=== PATIENT | male | born 1960 ===

== ENCOUNTER 2025-01-31 09:45 | Inpatient (IN) | payer OTHER ==
[~2025-01-31] VITALS: Ht 162.6 cm; Wt 59.0 kg
[2025-01-31] MEDS ORDERED: DILTIAZEM ER120 M2 PO (11:18)
[2025-01-31] MEDS ORDERED: ZESTRIL20 MG PO (11:18)
[2025-01-31] MEDS ORDERED: METFORMIN HCL500 M3 PO (11:18)
[2025-01-31] MEDS ORDERED: ROSUVASTATIN CAL5 MG PO (11:19)
[2025-01-31] MEDS ORDERED: HORIZANT300 MG PO (11:19)
[2025-01-31] MEDS ORDERED: PROTONIX40 MG PO (11:20)
[2025-01-31] MEDS ORDERED: B12 ACTIVE1000 MCG PO (11:20)
[2025-01-31 13:32] LABS: BASO % 0.8 % (0.1-1.2); EOS # 0.13 (0.04-0.54); EOS % 1.8 % (0.7-7.0); LYMPH # 1.71 (1.18-3.74); LYMPH % 23.8 % (19.3-53.1); MEAN PLATELET VOLUME 10.00 fl (9.4-12.4); MONO # 0.58 (0.24-0.82); MONO % 8.1 % (4.7-12.5); NEUT # 4.68 (1.56-6.13); NEUT % 65.4 % (34.0-71.1); RED CELL DISTRIBUTION WIDTH 13.6 % (11.6-14.4); URINE APPEARANCE Clear; URINE BILIRRUBIN Negative (NEGATIVE); URINE BLOOD Negative; URINE COLOR Yellow; URINE GLUCOSE Negative (NEGATIVE); URINE KETONE 15 (NEGATIVE); URINE LEUKOCYTE Negative; URINE NITRATE Negative; URINE PROTEIN Negative (NEGATIVE); URINE UROBILINOGEN 1.0 E.U./dl
[2025-01-31 13:36] LABS: URINE BACTERIA 244.7 uL (0.0-1933); URINE EPITHELIAL CELLS 12.2 uL (0.0-38.8); URINE RBC 3.3 uL (0.0-20.8); URINE WBC 8.4 uL (0.0-23.2)
[2025-01-31 13:50] LABS: URINE CAST 0.00 uL (0.0-1.40)
[2025-01-31 13:55] LABS: INR 1.04
[2025-01-31 14:23] LABS: ALT/SGPT 21.0 U/L (12-78); AST/SGOT 19.0 U/L (15-37); BILIRUBIN TOTAL 0.44 mg/dL (0.3-1.2); BUN CREA RATIO 26.0 (7.0-25.0); CREATININE SERUM 0.53 mg/dL (0.70-1.30); GFR 155.55; GLOBULINA 3.4 G/DL (2.4-3.5); GLUCOSE FASTING 79.0 mg/dL (65-100); OSMOLALITY SERUM 284.0 MOSM/KG (275-295)
[2025-03-03] MEDS ORDERED: HEMOSTATIC MATRIX 1 KIT KIT TOP ONE (09:49)
[2025-03-03] MEDS ORDERED: BUPIVACAINE HCL/MPF 0.5% 30ML VIAL ONE (09:52)
[2025-03-03] MEDS ORDERED: LIDOCAINE HCL 1%/EPINEPHRINE 20ML VIAL IJ ONE (09:52)
[2025-03-03] MEDS ORDERED: DIBUCAINE 30 GM TUBE ONE (09:52)
[2025-03-03] MEDS ORDERED: POVIDONE-IODINE 118 ML BOTT TOP ONE (09:52)
[2025-03-03] MEDS ORDERED: METRONIDAZOLE/SODIUM CHLORIDE 500 MG/100 ML PIGGYBACK IV ONE (11:00)
[2025-03-03] MEDS ORDERED: CEFTRIAXONE SODIUM 2,000 MG VIAL IV ONE (11:00)
[2025-03-03] MEDS ORDERED: ONDANSETRON HCL 2 MG/ML VIAL IV PRN (11:15)
[2025-03-03] MEDS ORDERED: OxyCODONE HCL 5 MG TABLET (ROXICODONE) PO PRN (11:15)
[2025-03-03] MEDS ORDERED: MORPHINE SULFATE 4 MG/ML VIAL IV PRN (11:15)
[2025-03-03] MEDS ORDERED: DEXTROSE 50 % IN WATER 0.5 G/ML DISP.SYRIN IV PRN ×2 (11:15→13:30)
[2025-03-03] MEDS ORDERED: 0.9 % SODIUM CHLORIDE 1,000 ML IV SCH (11:15)
[2025-03-03 12:53] LABS: BASO % 1.2 % (0.1-1.2); EOS # 0.10 (0.04-0.54); EOS % 1.9 % (0.7-7.0); LYMPH # 1.32 (1.18-3.74); LYMPH % 25.5 % (19.3-53.1); MEAN PLATELET VOLUME 10.60 fl (9.4-12.4); MONO # 0.57 (0.24-0.82); MONO % 11.0 % (4.7-12.5); NEUT # 3.10 (1.56-6.13); NEUT % 60.0 % (34.0-71.1); RED CELL DISTRIBUTION WIDTH 13.4 % (11.6-14.4)
[2025-03-03] MEDS ORDERED: HYOSCYAMINE SULFATE 0.125 MG TAB.SUBL SL SCH (13:00)
[2025-03-03] MEDS ORDERED: INSULIN LISPRO 1,000 UNIT/10 ML UNITS SUBCUTANEO PRN (13:30)
[2025-03-03 13:34] LABS: BUN CREA RATIO 15.0 (7.0-25.0); CREATININE SERUM 0.55 mg/dL (0.70-1.30); GFR 148.58; GLUCOSE FASTING 84.0 mg/dL (65-100); OSMOLALITY SERUM 279.0 MOSM/KG (275-295)
[2025-03-03] MEDS ORDERED: ENALAPRILAT DIHYDRATE 1.25 MG/ML VIAL IV PRN (13:45)
[2025-03-03] MEDS ORDERED: ACETAMINOPHEN 500 MG GEL..CAP PO SCH (14:00)
[2025-03-03] MEDS ORDERED: GABAPENTIN 300 MG CAPSULE PO SCH (17:00)
[2025-03-03] MEDS ORDERED: GABAPENTIN 300 MG CAPSULE PO ONE (18:09)
[2025-03-03] MEDS ORDERED: HYOSCYAMINE SULFATE 0.125 MG TAB.SUBL ONE (18:09)
[2025-03-03 18:30] VITALS: BP 138/74; O2SAT 98
[2025-03-03] MEDS ORDERED: CELECOXIB 200 MG CAPSULE PO SCH (21:00)
[2025-03-03] MEDS ORDERED: FAMOTIDINE/PF 20 MG/2 ML VIAL IV PUSH SCH (21:00)
[2025-03-04 01:26] VITALS: BP 116/65; O2SAT 98
[2025-03-04 07:37] LABS: BASO % 0.7 % (0.1-1.2); EOS # 0.07 (0.04-0.54); EOS % 0.9 % (0.7-7.0); LYMPH # 1.38 (1.18-3.74); LYMPH % 18.5 % (19.3-53.1); MEAN PLATELET VOLUME 10.70 fl (9.4-12.4); MONO # 0.81 (0.24-0.82); MONO % 10.9 % (4.7-12.5); NEUT # 5.12 (1.56-6.13); NEUT % 68.9 % (34.0-71.1); RED CELL DISTRIBUTION WIDTH 13.2 % (11.6-14.4)
[2025-03-04 07:58] LABS: BUN CREA RATIO 15.0 (7.0-25.0); CREATININE SERUM 0.55 mg/dL (0.70-1.30); GFR 148.58; GLUCOSE FASTING 95.0 mg/dL (65-100); OSMOLALITY SERUM 283.0 MOSM/KG (275-295)
[2025-03-04] MEDS ORDERED: RECTICARE30 GM TOP (08:01)
[2025-03-04] MEDS ORDERED: TRAM1TAB98 PO (08:01)
[2025-03-04 08:39] VITALS: BP 147/81; O2SAT 100
[2025-03-04] MEDS ORDERED: LISINOPRIL 20 MG TABLET PO SCH (09:00)
[2025-03-04] MEDS ORDERED: DILTIAZEM HCL 120 MG TABLET PO SCH (09:00)
[2025-03-04] MEDS ORDERED: ENOXAPARIN SODIUM 40 MG/0.4 ML SYRINGE SUBCUTANEO SCH (17:00)
[2025-03-04] MEDS ORDERED: ROSUVASTATIN CALCIUM 10 MG TABLET PO SCH (17:00)
[2025-03-05] MEDS ORDERED: ENOXAPARIN SODIUM 40 MG/0.4 ML SYRINGE SUBCUTANEO SCH (09:00)
== END 2025-03-04 12:04 | disposition home or self-care (01) | DRG 395 ==
LOC: SURH 02-07 07:00 → O/R 03-03 09:00 → SURG 03-03 16:14 → SURH 03-04 09:45 → SURG 03-04 12:04
PROVIDERS: ADMIT Surgery; ATTEND Surgery
PROC: 0DJD8ZZ Inspection of Lower Intestinal Tract, Via Natural or Artificial Opening Endoscopic (ICD-10-PCS; 2025-03-03)
PROC: 3E0T3BZ Introduction of Anesthetic Agent into Peripheral Nerves and Plexi, Percutaneous Approach (ICD-10-PCS; 2025-03-03)
PROC: 0DBP8ZZ Excision of Rectum, Via Natural or Artificial Opening Endoscopic (ICD-10-PCS; principal; 2025-03-03 18:00)
DX: D3A.026 Benign carcinoid tumor of the rectum (principal); I11.9 Hypertensive heart disease without heart failure; E11.9 Type 2 diabetes mellitus without complications; D50.0 Iron deficiency anemia secondary to blood loss (chronic)
CPT/HCPCS: 0184T; 45300; 64430